=== PATIENT | male | born 2000 | race Two or more races ===

== ENCOUNTER 2019-10-24 20:28 | Emergency (ER) | payer MEDICAID ==
[~2019-10-24] VITALS: Ht 170.2 cm; Wt 59.0 kg
[2019-10-24 20:40] VITALS: BP 131/70
== END 2019-10-25 03:38 | disposition left against medical advice (07) ==
LOC: ER 20:28
DX: R07.81 Pleurodynia (principal); Z53.21 Procedure and treatment not carried out due to patient leaving prior to being seen by health care provider